=== PATIENT | male | born 1965 | race Caucasian/White ===

== ENCOUNTER → 2017-03-17 | Outpatient (CLI) | payer OTHER ==
[~2017-03-17] MED LIST: GADOBUTROL 10 ML VIAL IVP ONE
== END ==
LOC: FIMAGING 07:08
PROVIDERS: ATTEND Internal Medicine Hematology & Oncology
DX: Z80.8 Family history of malignant neoplasm of other organs or systems (principal)
CPT/HCPCS: A9585